=== PATIENT | male | born 1985 | race Caucasian/White ===

== ENCOUNTER 2019-06-24 11:24 | Emergency (ER) | payer OTHER ==
[~2019-06-24] VITALS: Ht 190.5 cm; Wt 109.6 kg
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
[2019-06-24] MEDS ORDERED: KETOROLAC 30 MG/1 ML ONE (12:12)
[2019-06-24] MEDS ORDERED: HYDROmorphone 2 MG/ML, 1ML ONE (12:12)
[2019-06-24] MEDS ORDERED: ONDANSETRON ODT 4 MG ONE (12:13)
[2019-06-24] MEDS ORDERED: KETOROLAC 30 MG/1 ML IM ONE (12:30)
[2019-06-24] MEDS ORDERED: ONDANSETRON ODT 4 MG PO ONE (12:30)
[2019-06-24] MEDS ORDERED: HYDROmorphone 1 MG/ML, 1ML INJ IM ONE (12:30)
--- NOTE | 2019-06-24 13:17 | NUR ---
DISCHARGE INSTRUCTIONS REVIEWED
[2019-06-24 13:18] VITALS: BP 151/93
== END 2019-06-24 13:23 | disposition home or self-care (01) ==
LOC: ED 13:00
DX: M50.10 Cervical disc disorder with radiculopathy, unspecified cervical region (principal)
CPT/HCPCS: 96372; 99283; J1170; J1885; Q0162

== ENCOUNTER 2019-07-06 19:04 | Emergency (ER) | payer SELFPAY ==
[~2019-07-06] VITALS: Ht 190.5 cm; Wt 112.0 kg
--- NOTE | 2019-07-06 19:17 | NUR ---
SAURABH RIZZO AT BS TO EVAL PT. AND JOYCE ALFARO WITH PT. AND FAMILY AT BS.
[2019-07-06] MEDS ORDERED: OXYcodone/APAP 5/325MG TABLET PO ONE (19:30)
[2019-07-06] MEDS ORDERED: DEXAMETHASONE 4 MG TABLET PO ONE (19:30)
[2019-07-06] MEDS ORDERED: KETOROLAC 30 MG/1 ML IM ONE (19:30)
[2019-07-06] MEDS ORDERED: DEXAMETHASONE 4 MG TABLET ONE (19:33)
[2019-07-06] MEDS ORDERED: KETOROLAC 30 MG/1 ML ONE (19:34)
[2019-07-06] MEDS ORDERED: OXYcodone/APAP 5/325MG TABLET ONE (19:34)
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
[2019-07-06 20:21] VITALS: BP 129/66
== END 2019-07-06 20:24 | disposition home or self-care (01) ==
LOC: ED 20:05
DX: M54.12 Radiculopathy, cervical region (principal)
CPT/HCPCS: 96372; 99283; J1885